=== PATIENT | male | born 1995 | race American Indian/Alaskan Native ===

== ENCOUNTER 2017-03-28 21:58 | Inpatient (IN) | payer SELFPAY ==
[2017-03-28 23:03] LABS: Hematocrit 50.6 % (35.5-45.6); Hemoglobin 16.8 gm/dl (11.8-15.2); Mean Corpuscular HGB Conc 33 % (32-34); Mean Corpuscular Hemoglobin 30 pg (28-32); Mean Corpuscular Volume 91 fl (84-94); Platelet Count 397 K/mm3 (140-440); Red Blood Count 5.59 M/mm3 (3.65-5.03); Red Cell Distribution Width 13.8 % (13.2-15.2); White Blood Count 16.1 K/mm3 (4.5-11.0)
[2017-03-28 23:27] LABS: Alanine Aminotransferase 30 units/L (7-56); Albumin 5.4 g/dL (3.9-5); Albumin/Globulin Ratio 1.3 %; Alkaline Phosphatase 75 units/L (35-129); Anion Gap 30 mmol/L; BUN/Creatinine Ratio 9.41; Blood Urea Nitrogen 32 mg/dL (9-20); Calcium 10.8 mg/dL (8.4-10.2); Carbon Dioxide 15 mmol/L (22-30); Chloride 92.5 mmol/L (98-107); Glucose 135 mg/dL (75-100); Sodium 133 mmol/L (137-145); Total Protein 9.6 g/dL (6.3-8.2)
[2017-03-29 00:01] LABS: Basophils % (Manual) 0 % (0.0-1.8); Blastocytes % (Manual) 0 %; Diff Status Complete; Eosinophils % (Manual) 0 % (0.0-4.3); Platelet Estimate Consistent w Auto; RBC Morphology Normal
[2017-03-29] MEDS ORDERED: TYLENOL ONE (03:57)
[2017-03-29] MEDS ORDERED: TYLENOL PO ONE (03:57)
[2017-03-29] MEDS ORDERED: NACL 0.9% 1000 ML 1,000 ML IV ONE (08:42)
[2017-03-29] MEDS ORDERED: FLEXERIL PO ONE (08:42)
[2017-03-29] MEDS ORDERED: K-DUR PO ONE (08:46)
--- NOTE | 2017-03-29 08:51 | Emergency Department Report ---
HPI - General Chief Complaint: Syncope Time Seen by Provider: 03/29/17 08:35 - HPI HPI: Patient has been working hard, trying to move, for 5 days without air conditioning, and now has really bad cramps, decrease urination, and fatigue. Patient denies any chest pain, n/v, or sob. ED Past Medical Hx - Past Medical History Previous Medical History?: No - Surgical History Past Surgical History?: No - Family History Family history: hypertension - Social History Smoking Status: Never Smoker ED Review of Systems ROS: Stated complaint: MUSCLE CRAMPS Other details as noted in HPI Comment: All other systems reviewed and negative Musculoskeletal: as per HPI, arthralgia, myalgia Physical Exam - Physical Exam Vital Signs: Vital Signs 03/28/17 03/28/17 03/29/17 22:18 22:35 03:54 Temperature 97.4 F L 97.4 F L 98.8 F Pulse Rate 108 H 108 H 114 H Respiratory 18 18 Rate Blood Pressure 145/79 156/96 Blood Pressure 145/79 [Right] O2 Sat by Pulse 98 100 99 Oximetry 03/29/17 03/29/17 04:00 08:33 Temperature Pulse Rate Respiratory 20 20 Rate Blood Pressure Blood Pressure [Right] O2 Sat by Pulse 99 Oximetry Physical Exam: gen: alert and oriented x3 skin-dry heent: perrla, eomi cv: rrr, nl s1, s2 lungs: cta bila abd: s,nt,nd, pos bs ext: no edema gu: pt refused neuro: no deficits psych: normal mood, ED Course Vital Signs 03/28/17 03/28/17 03/29/17 22:18 22:35 03:54 Temperature 97.4 F L 97.4 F L 98.8 F Pulse Rate 108 H 108 H 114 H Respiratory 18 18 Rate Blood Pressure 145/79 156/96 Blood Pressure 145/79 [Right] O2 Sat by Pulse 98 100 99 Oximetry 03/29/17 03/29/17 04:00 08:33 Temperature Pulse Rate Respiratory 20 20 Rate Blood Pressure Blood Pressure [Right] O2 Sat by Pulse 99 Oximetry ED Medical Decision Making - Lab Data Result diagrams: 03/28/17 22:50 03/28/17 22:50 Critical care attestation.: If time is entered above; I have spent that time in minutes in the direct care of this critically ill patient, excluding procedure time. ED Disposition Clinical Impression: Severe dehydration, Acute renal failure due to rhabdomyolysis Disposition: OP ADMIT IP TO THIS HOSP Is pt being admited?: Yes Does the pt Need Aspirin: No Condition: Stable Referrals: PRIMARY CARE, [Primary Care Provider] - 3-5 Days
[2017-03-29] MEDS ORDERED: DULCOLAX PR PRN (10:05)
[2017-03-29] MEDS ORDERED: TYLENOL PO PRN (10:05)
--- NOTE | 2017-03-29 10:10 | History and Physical Report ---
History of Present Illness Date of examination: 03/29/17 Date of admission: 03/29/2018 Chief complaint: Muscle cramps and lightheadedness.. History of present illness: Patient is a 21 years old -Beninese male with no past medical history who presents to the emergency department complaining of muscle cramps and lightheadedness. Patient just over 5 days ago the patient was at his normal baseline state of health. Patient has been trying to move out from his house and no air conditioning for the past 5 days. Patient developed generalized muscle cramps, decrease urination, thirsty and fatigue. Patient states that this morning felt lightheaded almost passed out and got worried and decided to come the emergency department. Patient denies syncope, shortness of breath, chest pain, nausea and vomiting. Past History Past Medical History: No medical history Past Surgical History: No surgical history Social history: lives with family. denies: smoking, alcohol abuse, prescription drug abuse Family history: hypertension Medications and Allergies Allergies Allergy/AdvReac Type Severity Reaction Status Date / Time No Known Allergies Allergy Unverified 03/28/17 22:40 Home Medications Medication Instructions Recorded Confirmed Last Taken Type No Known Home Medications [No 03/29/17 03/29/17 Unknown History Reported Home Medications] Active Meds: Active Medications Potassium Chloride/Sodium Chloride (Ns/Kcl 20meq) 20 meq in 1,000 mls @ 150 mls /hr IV DIRECT PATRICIO Review of Systems Constitutional: no weight gain, no fever, no chills Ears, nose, mouth and throat: no ear pain, no ear discharge, no tinnitis, no decreased hearing Cardiovascular: lightheadedness, no orthopnea, no palpitations, no rapid/ irregular heart beat, no edema Respiratory: no cough, no cough with sputum, no excessive sputum Gastrointestinal: no abdominal pain, no nausea, no vomiting, no diarrhea, no constipation Genitourinary Male: no hematuria, no flank pain, no discharge, no urinary frequency, no urinary hesitancy, no nocturia Rectal: no pain, no incontinence Musculoskeletal: muscle weakness, muscle cramps, myalgias, no neck stiffness, no neck pain, no shooting arm pain Integumentary: no pruritis, no redness, no sores, no wounds, no jaundice Neurological: no paralysis, no weakness, no parathesias, no numbness, no tingling, no ataxia Psychiatric: no sleep disturbances, no insomnia, no hypersomnia, no change in appetite Endocrine: excessive thirst, no cold intolerance, no heat intolerance, no polyphagia, no excessive sweating Hematologic/Lymphatic: no easy bruising, no easy bleeding Allergic/Immunologic: no allergic rhinitis, no wheezing Exam - Constitutional Vitals: Temp Pulse Resp BP Pulse Ox 98.8 F 114 H 20 156/96 99 03/29/17 03:54 03/29/17 03:54 03/29/17 08:33 03/29/17 03:54 03/29/17 08:33 General appearance: Present: no acute distress - EENT Eyes: Present: PERRL ENT: hearing intact - Neck Neck: Present: supple - Respiratory Respiratory effort: normal Respiratory: bilateral: CTA - Cardiovascular Rhythm: regular Heart Sounds: Present: S1 & S2 - Extremities Extremities: no ischemia Peripheral Pulses: within normal limits - Abdominal General gastrointestinal: Present: soft, non-tender Male genitourinary: Present: deferred - Rectal Rectal Exam: deferred - Integumentary Integumentary: Present: clear, warm, dry - Musculoskeletal Musculoskeletal: strength equal bilaterally - Psychiatric Psychiatric: appropriate mood/affect - Neurologic Neurologic: CNII-XII intact - Allied Health Allied health notes reviewed: nursing Results - Labs CBC & Chem 7: 03/28/17 22:50 03/28/17 22:50 Labs: Laboratory Last Values WBC 16.1 K/mm3 (4.5-11.0) H 03/28/17 22:50 RBC 5.59 M/mm3 (3.65-5.03) H 03/28/17 22:50 Hgb 16.8 gm/dl (11.8-15.2) H 03/28/17 22:50 Hct 50.6 % (35.5-45.6) H 03/28/17 22:50 MCV 91 fl (84-94) 03/28/17 22:50 MCH 30 pg (28-32) 03/28/17 22:50 MCHC 33 % (32-34) 03/28/17 22:50 RDW 13.8 % (13.2-15.2) 03/28/17 22:50 Plt Count 397 K/mm3 (140-440) 03/28/17 22:50 Add Manual Diff Complete 03/28/17 22:50 Total Counted 100 03/28/17 22:50 Seg Neuts % (Manual) 76.0 % (40.0-70.0) H 03/28/17 22:50 Band Neutrophils % 8.0 % 03/28/17 22:50 Lymphocytes % (Manual) 9.0 % (13.4-35.0) L 03/28/17 22:50 Reactive Lymphs % (Man) 0 % 03/28/17 22:50 Monocytes % (Manual) 4.0 % (0.0-7.3) 03/28/17 22:50 Eosinophils % (Manual) 0 % (0.0-4.3) 03/28/17 22:50 Basophils % (Manual) 0 % (0.0-1.8) 03/28/17 22:50 Metamyelocytes % 3.0 % 03/28/17 22:50 Myelocytes % 0 % 03/28/17 22:50 Promyelocytes % 0 % 03/28/17 22:50 Blast Cells % 0 % 03/28/17 22:50 Nucleated RBC % Not Reportable 03/28/17 22:50 Seg Neutrophils # Man 12.2 K/mm3 (1.8-7.7) H 03/28/17 22:50 Band Neutrophils # 1.3 K/mm3 03/28/17 22:50 Lymphocytes # (Manual) 1.4 K/mm3 (1.2-5.4) 03/28/17 22:50 Abs React Lymphs (Man) 0.0 K/mm3 03/28/17 22:50 Monocytes # (Manual) 0.6 K/mm3 (0.0-0.8) 03/28/17 22:50 Eosinophils # (Manual) 0.0 K/mm3 (0.0-0.4) 03/28/17 22:50 Basophils # (Manual) 0.0 K/mm3 (0.0-0.1) 03/28/17 22:50 Metamyelocytes # 0.5 K/mm3 03/28/17 22:50 Myelocytes # 0.0 K/mm3 03/28/17 22:50 Promyelocytes # 0.0 K/mm3 03/28/17 22:50 Blast Cells # 0.0 K/mm3 03/28/17 22:50 WBC Morphology Not Reportable 03/28/17 22:50 Hypersegmented Neuts Not Reportable 03/28/17 22:50 Hyposegmented Neuts Not Reportable 03/28/17 22:50 Hypogranular Neuts Not Reportable 03/28/17 22:50 Smudge Cells Not Reportable 03/28/17 22:50 Toxic Granulation Not Reportable 03/28/17 22:50 Toxic Vacuolation Not Reportable 03/28/17 22:50 Dohle Bodies Not Reportable 03/28/17 22:50 Pelger-Huet Anomaly Not Reportable 03/28/17 22:50 Jennifer Rods Not Reportable 03/28/17 22:50 Platelet Estimate Consistent w auto 03/28/17 22:50 Clumped Platelets Not Reportable 03/28/17 22:50 Plt Clumps, EDTA Not Reportable 03/28/17 22:50 Large Platelets Not Reportable 03/28/17 22:50 Giant Platelets Not Reportable 03/28/17 22:50 Platelet Satelliting Not Reportable 03/28/17 22:50 Plt Morphology Comment Not Reportable 03/28/17 22:50 RBC Morphology Normal 03/28/17 22:50 Dimorphic RBCs Not Reportable 03/28/17 22:50 Polychromasia Not Reportable 03/28/17 22:50 Hypochromasia Not Reportable 03/28/17 22:50 Poikilocytosis Not Reportable 03/28/17 22:50 Anisocytosis Not Reportable 03/28/17 22:50 Microcytosis Not Reportable 03/28/17 22:50 Macrocytosis Not Reportable 03/28/17 22:50 Spherocytes Not Reportable 03/28/17 22:50 Pappenheimer Bodies Not Reportable 03/28/17 22:50 Sickle Cells Not Reportable 03/28/17 22:50 Target Cells Not Reportable 03/28/17 22:50 Tear Drop Cells Not Reportable 03/28/17 22:50 Ovalocytes Not Reportable 03/28/17 22:50 Helmet Cells Not Reportable 03/28/17 22:50 Renae-[place] Bodies Not Reportable 03/28/17 22:50 [place] Rings Not Reportable 03/28/17 22:50 Minerva Cells Not Reportable 03/28/17 22:50 Bite Cells Not Reportable 03/28/17 22:50 Crenated Cell Not Reportable 03/28/17 22:50 Elliptocytes Not Reportable 03/28/17 22:50 Acanthocytes (Spur) Not Reportable 03/28/17 22:50 Rouleaux Not Reportable 03/28/17 22:50 Hemoglobin C Crystals Not Reportable 03/28/17 22:50 Schistocytes Not Reportable 03/28/17 22:50 Malaria parasites Not Reportable 03/28/17 22:50 Kris Bodies Not Reportable 03/28/17 22:50 Hem Pathologist Commnt No 03/28/17 22:50 Sodium 133 mmol/L (137-145) L 03/28/17 22:50 Potassium 4.0 mmol/L (3.6-5.0) 03/28/17 22:50 Chloride 92.5 mmol/L (98-107) L 03/28/17 22:50 Carbon Dioxide 15 mmol/L (22-30) L 03/28/17 22:50 Anion Gap 30 mmol/L 03/28/17 22:50 BUN 32 mg/dL (9-20) H 03/28/17 22:50 Creatinine 3.4 mg/dL (0.8-1.5) H 03/28/17 22:50 Estimated GFR 23 ml/min 03/28/17 22:50 BUN/Creatinine Ratio 9.41 % 03/28/17 22:50 Glucose 135 mg/dL (75-100) H 03/28/17 22:50 Calcium 10.8 mg/dL (8.4-10.2) H 03/28/17 22:50 Total Bilirubin 0.40 mg/dL (0.1-1.2) 03/28/17 22:50 AST 45 units/L (5-40) H 03/28/17 22:50 ALT 30 units/L (7-56) 03/28/17 22:50 Alkaline Phosphatase 75 units/L (35-129) 03/28/17 22:50 Total Creatine Kinase 8631 units/L (55-170) H 03/29/17 08:50 Troponin T < 0.010 ng/mL (0.00-0.029) 03/28/17 22:50 Total Protein 9.6 g/dL (6.3-8.2) H 03/28/17 22:50 Albumin 5.4 g/dL (3.9-5) H 03/28/17 22:50 Albumin/Globulin Ratio 1.3 % 03/28/17 22:50 Assessment and Plan Assessment and plan: Acute kidney injury/ Vasomotor Nephropathy Most likely due to dehydration IV fluid hydration, if serum creatinine does not improve with IV fluid we will consider nephrology. We will repeat BMP in the AM Rhabdomyolysis Elevated creatinine Kinase Aggressive IV Fluid hydration Strict I/O's Supportive care Severe dehydration Gently IV fluid hydation DVT prophylaxis Lovenox Advance Directives: Yes (Full Code) VTE prophylaxis?: Chemical Contraindication Mechanical VTE Prophylaxis: Treatment Not Indicated Plan of care discussed with patient/family: Yes
[2017-03-29] MEDS ORDERED: NS/KCL 20MEQ 20 MEQ/1,000 ML BAG IV SCH (11:00)
[2017-03-29] MEDS ORDERED: FLEXERIL PO SCH (14:00)
[2017-03-29] MEDS ORDERED: ZOFRAN IV PRN (15:08)
[2017-03-29] MEDS ORDERED: MORPHINE IV PRN ×2 (15:08→15:11)
[2017-03-29] MEDS: NACL 0.9% 1000 ML 1,000 ML IV SCH ×2 (17:59→22:48)
[2017-03-29] MEDS ORDERED: LOVENOX SUB-Q SCH (22:00)
[2017-03-29] MEDS: DILAUDID IV PRN (23:57)
[2017-03-30] MEDS: NACL 0.9% 1000 ML 1,000 ML IV SCH ×2 (04:16→09:38)
--- NOTE | 2017-03-30 08:14 | Progress Note ---
Hospitalist Physical - Constitutional Vitals: Temp Pulse Resp BP Pulse Ox 97.9 F 82 18 137/69 99 03/29/17 22:24 03/29/17 22:24 03/29/17 22:24 03/29/17 22:24 03/29/17 22:24 General appearance: Present: no acute distress Results - Labs CBC & Chem 7: 03/28/17 22:50 03/28/17 22:50 Labs: Laboratory Last Values WBC 16.1 K/mm3 (4.5-11.0) H 03/28/17 22:50 RBC 5.59 M/mm3 (3.65-5.03) H 03/28/17 22:50 Hgb 16.8 gm/dl (11.8-15.2) H 03/28/17 22:50 Hct 50.6 % (35.5-45.6) H 03/28/17 22:50 MCV 91 fl (84-94) 03/28/17 22:50 MCH 30 pg (28-32) 03/28/17 22:50 MCHC 33 % (32-34) 03/28/17 22:50 RDW 13.8 % (13.2-15.2) 03/28/17 22:50 Plt Count 397 K/mm3 (140-440) 03/28/17 22:50 Add Manual Diff Complete 03/28/17 22:50 Total Counted 100 03/28/17 22:50 Seg Neuts % (Manual) 76.0 % (40.0-70.0) H 03/28/17 22:50 Band Neutrophils % 8.0 % 03/28/17 22:50 Lymphocytes % (Manual) 9.0 % (13.4-35.0) L 03/28/17 22:50 Reactive Lymphs % (Man) 0 % 03/28/17 22:50 Monocytes % (Manual) 4.0 % (0.0-7.3) 03/28/17 22:50 Eosinophils % (Manual) 0 % (0.0-4.3) 03/28/17 22:50 Basophils % (Manual) 0 % (0.0-1.8) 03/28/17 22:50 Metamyelocytes % 3.0 % 03/28/17 22:50 Myelocytes % 0 % 03/28/17 22:50 Promyelocytes % 0 % 03/28/17 22:50 Blast Cells % 0 % 03/28/17 22:50 Nucleated RBC % Not Reportable 03/28/17 22:50 Seg Neutrophils # Man 12.2 K/mm3 (1.8-7.7) H 03/28/17 22:50 Band Neutrophils # 1.3 K/mm3 03/28/17 22:50 Lymphocytes # (Manual) 1.4 K/mm3 (1.2-5.4) 03/28/17 22:50 Abs React Lymphs (Man) 0.0 K/mm3 03/28/17 22:50 Monocytes # (Manual) 0.6 K/mm3 (0.0-0.8) 03/28/17 22:50 Eosinophils # (Manual) 0.0 K/mm3 (0.0-0.4) 03/28/17 22:50 Basophils # (Manual) 0.0 K/mm3 (0.0-0.1) 03/28/17 22:50 Metamyelocytes # 0.5 K/mm3 03/28/17 22:50 Myelocytes # 0.0 K/mm3 03/28/17 22:50 Promyelocytes # 0.0 K/mm3 03/28/17 22:50 Blast Cells # 0.0 K/mm3 03/28/17 22:50 WBC Morphology Not Reportable 03/28/17 22:50 Hypersegmented Neuts Not Reportable 03/28/17 22:50 Hyposegmented Neuts Not Reportable 03/28/17 22:50 Hypogranular Neuts Not Reportable 03/28/17 22:50 Smudge Cells Not Reportable 03/28/17 22:50 Toxic Granulation Not Reportable 03/28/17 22:50 Toxic Vacuolation Not Reportable 03/28/17 22:50 Dohle Bodies Not Reportable 03/28/17 22:50 Pelger-Huet Anomaly Not Reportable 03/28/17 22:50 Jennifer Rods Not Reportable 03/28/17 22:50 Platelet Estimate Consistent w auto 03/28/17 22:50 Clumped Platelets Not Reportable 03/28/17 22:50 Plt Clumps, EDTA Not Reportable 03/28/17 22:50 Large Platelets Not Reportable 03/28/17 22:50 Giant Platelets Not Reportable 03/28/17 22:50 Platelet Satelliting Not Reportable 03/28/17 22:50 Plt Morphology Comment Not Reportable 03/28/17 22:50 RBC Morphology Normal 03/28/17 22:50 Dimorphic RBCs Not Reportable 03/28/17 22:50 Polychromasia Not Reportable 03/28/17 22:50 Hypochromasia Not Reportable 03/28/17 22:50 Poikilocytosis Not Reportable 03/28/17 22:50 Anisocytosis Not Reportable 03/28/17 22:50 Microcytosis Not Reportable 03/28/17 22:50 Macrocytosis Not Reportable 03/28/17 22:50 Spherocytes Not Reportable 03/28/17 22:50 Pappenheimer Bodies Not Reportable 03/28/17 22:50 Sickle Cells Not Reportable 03/28/17 22:50 Target Cells Not Reportable 03/28/17 22:50 Tear Drop Cells Not Reportable 03/28/17 22:50 Ovalocytes Not Reportable 03/28/17 22:50 Helmet Cells Not Reportable 03/28/17 22:50 Renae-[place] Bodies Not Reportable 03/28/17 22:50 [place] Rings Not Reportable 03/28/17 22:50 Minerva Cells Not Reportable 03/28/17 22:50 Bite Cells Not Reportable 03/28/17 22:50 Crenated Cell Not Reportable 03/28/17 22:50 Elliptocytes Not Reportable 03/28/17 22:50 Acanthocytes (Spur) Not Reportable 03/28/17 22:50 Rouleaux Not Reportable 03/28/17 22:50 Hemoglobin C Crystals Not Reportable 03/28/17 22:50 Schistocytes Not Reportable 03/28/17 22:50 Malaria parasites Not Reportable 03/28/17 22:50 Kris Bodies Not Reportable 03/28/17 22:50 Hem Pathologist Commnt No 03/28/17 22:50 Sodium 133 mmol/L (137-145) L 03/28/17 22:50 Potassium 4.0 mmol/L (3.6-5.0) 03/28/17 22:50 Chloride 92.5 mmol/L (98-107) L 03/28/17 22:50 Carbon Dioxide 15 mmol/L (22-30) L 03/28/17 22:50 Anion Gap 30 mmol/L 03/28/17 22:50 BUN 32 mg/dL (9-20) H 03/28/17 22:50 Creatinine 3.4 mg/dL (0.8-1.5) H 03/28/17 22:50 Estimated GFR 23 ml/min 03/28/17 22:50 BUN/Creatinine Ratio 9.41 % 03/28/17 22:50 Glucose 135 mg/dL (75-100) H 03/28/17 22:50 Calcium 10.8 mg/dL (8.4-10.2) H 03/28/17 22:50 Total Bilirubin 0.40 mg/dL (0.1-1.2) 03/28/17 22:50 AST 45 units/L (5-40) H 03/28/17 22:50 ALT 30 units/L (7-56) 03/28/17 22:50 Alkaline Phosphatase 75 units/L (35-129) 03/28/17 22:50 Total Creatine Kinase 8631 units/L (55-170) H 03/29/17 08:50 Troponin T < 0.010 ng/mL (0.00-0.029) 03/28/17 22:50 Total Protein 9.6 g/dL (6.3-8.2) H 03/28/17 22:50 Albumin 5.4 g/dL (3.9-5) H 03/28/17 22:50 Albumin/Globulin Ratio 1.3 % 03/28/17 22:50
[2017-03-30 08:47] LABS: Basophils % (Auto) 0.7 % (0.0-1.8); Eosinophils % (Auto) 1.8 % (0.0-4.3); Hematocrit 43.4 % (35.5-45.6); Hemoglobin 14.1 gm/dl (11.8-15.2); Mean Corpuscular HGB Conc 33 % (32-34); Mean Corpuscular Hemoglobin 29 pg (28-32); Mean Corpuscular Volume 90 fl (84-94); Platelet Count 248 K/mm3 (140-440); Red Cell Distribution Width 13.9 % (13.2-15.2); White Blood Count 5.3 K/mm3 (4.5-11.0)
[2017-03-30 09:07] LABS: BUN/Creatinine Ratio 15.83; Blood Urea Nitrogen 19 mg/dL (9-20); Calcium 8.3 mg/dL (8.4-10.2); Carbon Dioxide 24 mmol/L (22-30); Chloride 105.7 mmol/L (98-107); Glucose 93 mg/dL (75-100); Potassium 4.6 mmol/L (3.6-5.0); Sodium 140 mmol/L (137-145)
[2017-03-30 09:27] LABS: Anion Gap 15 mmol/L
--- NOTE | 2017-03-30 09:32 | Admit Criteria Form ---
Admission Criteria Documentation: DEHYDRATION Clinical Indications for Admission to Inpatient Care ([place]/check or initial the applicable condition/criteria) Admission is indicated for 1 or more of the following (1)(2)(3) [ ]I. Serious cause for dehydration requiring acute hospitalization(e.g., bowel obstruction, increased intracranial pressure, infectious cause) [ X]II. Inpatient admission required [A] rather than observation care (see Dehydration:Observation Care guideline as appropriate)because of ANY ONE of the following (4)(5) [ ]a) Vomiting that is severe or persistent [X ]a) Dehydration that is severe or persistent [ ]a) IV fluid required rather than oral rehydration to replace significant ongoing(eg, for greater than 24 hours)losses(greater than3 L/ [id number]) (6) [ ]a) Parenteral nutrition regimen that must be implemented on inpatient basis [X ]a) Other condition, treatment, or monitoring requiring inpatient admission Extended stay beyond goal length of stay may be needed for (1)(2)(3)(9) [ ]a) Chronic severe dehydration [ ]b) Persistent vital sign changes, severe electrolyte imbalance, or diagnosed cause of dehydration that requires continued hospitalization(e.g., bowel obstruction, increased intracranial pressure) [ ]c) Severe comorbid illness (e.g., renal failure, heart failure, poorly controlled diabetes) [ ]d) Older patients (75 years or older) The original [employer] content created by [employer] has been revised. The portions of the content which have been revised are identified through the use of italic text or in bold, and [facility] [employer] has neither reviewed nor approved the modified material. All other unmodified content is copyright [employer]. Please see references footnoted in the original [employer] edition 2017 Admission Criteria Met: Yes
[2017-03-30] MEDS: DILAUDID IV PRN (09:39)
[2017-03-30] MEDS ORDERED: LOVENOX SUB-Q SCH ×3 (10:00→22:00)
--- NOTE | 2017-03-30 10:03 | Discharge Summary ---
Providers - Providers Date of Admission: 03/29/17 10:06 Date of discharge: 03/30/17 Attending physician: ANDREZ FINNEY MD Primary care physician: ANGEL WHITE MD Hospitalization Condition: Good Hospital course: Patient is a 21 years old -Lithuanian male with no past medical history who presents to the emergency department complaining of muscle cramps and lightheadedness. Patient was diagnosed with acute kidney injury, Rhabdomyolysis , Hyponatremia and severe dehydration. Patient presented muscle cramps and lightheadedness. Patient lab work revealed elevated total creatine kinase. Patient muscle cramps and lightheadedness was due to dehydration and rhabdomyolysis. He was treated with aggressive IV fluid normal saline hydration and pain medication. Patient is clinically improved and stable for discharge. Patient advised to follow-up with her primary care provider. Discharge Diagnosed Acute kidney injury/ Vasomotor Nephropathy Rhabdomyolysis Severe dehydration Hyponatremia Disposition: TO HOME OR SELFCARE Time spent for discharge: 32 minutes Core Measure Documentation - Palliative Care Palliative Care/ Comfort Measures: Not Applicable - Core Measures Any of the following diagnoses?: none Exam - Constitutional Vitals: Temp Pulse Resp BP Pulse Ox 98.1 F 72 20 113/63 100 03/30/17 08:00 03/30/17 08:00 03/30/17 08:00 03/30/17 08:00 03/30/17 08:00 General appearance: Present: no acute distress - EENT Eyes: Present: PERRL ENT: hearing intact - Neck Neck: Present: supple - Respiratory Respiratory effort: normal Respiratory: bilateral: CTA - Cardiovascular Heart rate: 72 Rhythm: regular Heart Sounds: Present: S1 & S2 - Extremities Extremities: no ischemia Peripheral Pulses: within normal limits - Abdominal General gastrointestinal: Present: soft, non-tender Male genitourinary: Present: deferred - Rectal Rectal Exam: deferred - Integumentary Integumentary: Present: clear, warm, dry - Musculoskeletal Musculoskeletal: strength equal bilaterally - Psychiatric Psychiatric: appropriate mood/affect - Neurologic Neurologic: CNII-XII intact - Allied Health Allied health notes reviewed: nursing Plan Activity: no restrictions Weight Bearing Status: Weight Bear as Tolerated Diet: low fat, low cholesterol Follow up with: PRIMARY CAREMD [Primary Care Provider] - 3-5 Days
[2017-03-30 16:19] VITALS: BP 124/61
== END 2017-03-30 19:53 | disposition home or self-care (01) | DRG 557 ==
LOC: ED 21:58 → 3A 03-29 10:06
PROVIDERS: ADMIT Internal Medicine; ATTEND Internal Medicine
DX: M62.82 Rhabdomyolysis (principal); N17.0 Acute kidney failure with tubular necrosis; E87.1 Hypo-osmolality and hyponatremia; M25.50 Pain in unspecified joint; E86.0 Dehydration; E87.6 Hypokalemia; Z82.49 Family history of ischemic heart disease and other diseases of the circulatory system
CPT/HCPCS: 36415; 80048; 80053; 82550; 84484; 85007; 85025; 93005; 93010; 96360; J1170; J1650; J2270; J7030